=== PATIENT | male | born 1970 | race African-American/Black ===

== ENCOUNTER 2019-08-22 01:30 | Emergency (ER) | payer OTHER ==
[~2019-08-22] VITALS: Ht 182.9 cm; Wt 81.6 kg
[2019-08-22] MEDS ORDERED: AZITHROMYCIN 250 MG TABLET PO ONE (02:15)
[2019-08-22] MEDS ORDERED: ONDANSETRON ODT 4 MG TAB.RAPDIS SL ONE (02:15)
[2019-08-22] MEDS ORDERED: CEFTRIAXONE 500 MG VIAL IM ONE (02:15)
[2019-08-22 02:29] LABS: *BILIRUBIN,URIN NEGATIVE (NEGATIVE); *BLOOD, URINE NEGATIVE (NEGATIVE); *CLARITY,URINE CLEAR (CLEAR); *COLOR,URINE YELLOW (YELLOW); *KETONES,URINE NEGATIVE (NEGATIVE); *UROBILINOGEN,URINE 0.2 E.U./dl (NORMAL); LEUKOCYTE ESTERASE ,URINE NEGATIVE (NEGATIVE); NITRITE, URINE NEGATIVE (NEGATIVE); UGLUCOSE NEGATIVE (NEGATIVE)
[2019-08-22] MEDS ORDERED: AZITHROMYCIN 250 MG TABLET ONE (02:30)
[2019-08-22] MEDS ORDERED: ONDANSETRON ODT 4 MG TAB.RAPDIS ONE (02:30)
[2019-08-22] MEDS ORDERED: CEFTRIAXONE 500 MG VIAL ONE (02:31)
[2019-08-22] MEDS ORDERED: LIDOCAINE HCL 1% 20 ML VIAL ONE (02:31)
[2019-08-22 02:54] VITALS: BP 148/88
--- NOTE | 2019-08-22 02:54 | NUR ---
Patient discharged to home in stable conditon. Written and verbal after care instructions given. Patient verbalizes understanding of instructions.
[2019-08-23 22:06] LABS: NEISSERIA GONORRHOEAE NAA Negative (Negative)
== END 2019-08-22 02:55 | disposition home or self-care (01) ==
LOC: ER 01:35
DX: S39.011A Strain of muscle, fascia and tendon of abdomen, initial encounter (principal); F12.10 Cannabis abuse, uncomplicated; F17.200 Nicotine dependence, unspecified, uncomplicated; F41.9 Anxiety disorder, unspecified; X58.XXXA Exposure to other specified factors, initial encounter; Y93.89 Activity, other specified; Y92.89 Other specified places as the place of occurrence of the external cause; Y99.8 Other external cause status
CPT/HCPCS: 81001; 87491; 87591; 96372; 99283; J0696; J3490; A4663; Q0144; Q0162

== ENCOUNTER 2019-09-05 09:12 | Emergency (ER) | payer OTHER ==
[~2019-09-05] VITALS: Ht 182.9 cm; Wt 81.6 kg
--- NOTE | 2019-09-05 09:28 | NUR ---
ERMD at bedside for MSE
--- NOTE | 2019-09-05 09:30 | NUR ---
pt ambulating with steady gait. A&O x4. c/o scrotal pain R>L. x1 wk. 4/10 on pain scale. per pt has hx of epididymitis. pain does not radiate per pt. Breathing even and unlabored. denies any SOB. speech is clear and able to make needs known / follow commands. fall precautions implemented. bed low, s/r up x2
[2019-09-05 09:45] LABS: *BILIRUBIN,URIN NEGATIVE (NEGATIVE); *BLOOD, URINE NEGATIVE (NEGATIVE); *CLARITY,URINE CLEAR (CLEAR); *COLOR,URINE YELLOW (YELLOW); *KETONES,URINE NEGATIVE (NEGATIVE); *UROBILINOGEN,URINE 0.2 E.U./dl (NORMAL); LEUKOCYTE ESTERASE ,URINE NEGATIVE (NEGATIVE); NITRITE, URINE NEGATIVE (NEGATIVE); PH,URINE 8.5 (5.0-8.0); UGLUCOSE NEGATIVE (NEGATIVE)
[2019-09-05] MEDS ORDERED: LIDOCAINE HCL 1% 20 ML VIAL ONE (10:12)
[2019-09-05] MEDS ORDERED: AZITHROMYCIN 250 MG TABLET ONE (10:12)
[2019-09-05] MEDS ORDERED: CEFTRIAXONE 500 MG VIAL ONE (10:12)
[2019-09-05] MEDS ORDERED: CEFTRIAXONE 500 MG VIAL IM ONE (10:15)
[2019-09-05] MEDS ORDERED: AZITHROMYCIN 250 MG TABLET PO ONE (10:15)
--- NOTE | 2019-09-05 10:22 | NUR ---
Patient ambulating with steady gait. Patient discharged to home in stable conditon. Written and verbal after care instructions given. Patient verbalizes understanding of instructions.
[2019-09-05 10:26] VITALS: BP 144/83
[2019-09-07 03:09] LABS: *GC NAA Negative (Negative); *TRIC.VAG. NAA Negative (Negative)
== END 2019-09-05 10:21 | disposition home or self-care (01) ==
LOC: ER 09:14
DX: N50.812 Left testicular pain (principal); N50.811 Right testicular pain; F17.200 Nicotine dependence, unspecified, uncomplicated; F12.10 Cannabis abuse, uncomplicated
CPT/HCPCS: 76870; 81001; 87491; 96372; 99284; J0696; J3490; A4663; Q0144

== ENCOUNTER 2019-10-05 19:20 | Emergency (ER) | payer OTHER ==
[~2019-10-05] VITALS: Ht 182.9 cm; Wt 81.6 kg
--- NOTE | 2019-10-05 20:13 | NUR ---
Dr. Turner at bedside for MSE.
--- NOTE | 2019-10-05 20:23 | NUR ---
Pt provided urine sample, sent to lab.
[2019-10-05 20:39] LABS: *BILIRUBIN,URIN NEGATIVE (NEGATIVE); *CLARITY,URINE CLEAR (CLEAR); *COLOR,URINE YELLOW (YELLOW); *KETONES,URINE NEGATIVE (NEGATIVE); *UROBILINOGEN,URINE 0.2 E.U./dl (NORMAL); LEUKOCYTE ESTERASE ,URINE NEGATIVE (NEGATIVE); NITRITE, URINE NEGATIVE (NEGATIVE); UGLUCOSE NEGATIVE (NEGATIVE)
[2019-10-05 20:59] LABS: *BLOOD, URINE NEGATIVE (NEGATIVE)
--- NOTE | 2019-10-05 21:44 | NUR ---
Ultrasound at bedside.
--- NOTE | 2019-10-05 22:34 | NUR ---
Patient discharged to home in stable conditon. Written and verbal after care instructions given. Patient verbalizes understanding of instructions. Pt ambulated out of ER with steady gait, no acute signs of distress, VSS, all belongings taken.
[2019-10-05 22:35] VITALS: BP 125/80
[2019-10-08 10:09] LABS: *GC NAA Negative (Negative)
[2019-10-08 12:06] LABS: *TRIC.VAG. NAA Negative (Negative)
== END 2019-10-05 22:36 | disposition home or self-care (01) ==
LOC: ER 19:23
DX: G89.29 Other chronic pain (principal); R10.2 Pelvic and perineal pain; F12.10 Cannabis abuse, uncomplicated; F17.200 Nicotine dependence, unspecified, uncomplicated
CPT/HCPCS: 76870; 87491; A4663

== ENCOUNTER 2020-01-26 08:41 | Emergency (ER) | payer OTHER ==
[~2020-01-26] VITALS: Ht 182.9 cm; Wt 81.6 kg
--- NOTE | 2020-01-26 08:56 | NUR ---
Patient eloped from facility. ER physician notified.
== END 2020-01-26 08:59 | disposition left against medical advice (07) ==
LOC: ER 08:41
DX: G89.29 Other chronic pain (principal); R10.30 Lower abdominal pain, unspecified; F17.200 Nicotine dependence, unspecified, uncomplicated; Z60.2 Problems related to living alone
CPT/HCPCS: A4663